=== PATIENT | male | born 1960 | race African-American/Black ===

== ENCOUNTER 2022-03-29 09:45 | Emergency (ER) | payer OTHER ==
[~2022-03-29] VITALS: Ht 177.8 cm; Wt 64.9 kg
[2022-03-29] MEDS ORDERED: JARDIANCE10 MG PO (10:07)
[2022-03-29] MEDS ORDERED: ZESTRIL10 M1 PO (10:07)
== END 2022-03-29 21:17 | disposition home or self-care (01) ==
LOC: ER 09:45
DX: S00.93XA Contusion of unspecified part of head, initial encounter (principal); X58.XXXA Exposure to other specified factors, initial encounter; Y93.9 Activity, unspecified; Y92.9 Unspecified place or not applicable; Y99.9 Unspecified external cause status